=== PATIENT | female | born 1950 | race Caucasian/White ===

== ENCOUNTER 2017-11-15 14:13 | Emergency (ER) | payer MEDICARE, MEDICAID ==
[~2017-11-15] VITALS: Ht 160 cm; Wt 100.0 kg
[~2017-11-15 14:13] MED LIST: AMI25T PO; AMIT-189 PO; ARIP15TA3 PO; ATOR20TA66 PO; AZO1OS EACHEYE; BACL10TA2 PO; FLUO20CA39 PO; HYDR-3972 PO; LAMO100T2 PO; LIDO700A22 TP; LISI-230 PO; MECL12.584 PO; MELO-83 PO; OMEP20CA10 PO; ONDA4TAB12 PO; POLY17PO10 PO; TRAV5DRO5 OP
[2017-11-15 14:22] VITALS: BP 133/79
[2017-11-15 14:56] LABS: BASOPHILS % (AUTO) 0.2 % (0-1); EOSINOPHILS # (AUTO) 0.1 X10'3 (0-0.9); EOSINOPHILS % (AUTO) 0.9 % (0-6); HEMOGLOBIN 12.3 g/dl (12.0-16.0); LYMPHOCYTES # (AUTO) 1.6 X10'3 (1.1-4.8); LYMPHOCYTES % (AUTO) 12.6 % (21-51); MEAN CORPUSCULAR HEMOGLOBIN 28.7 PG (27.0-31.0); MEAN CORPUSCULAR HGB CONC 33.2 % (33.0-36.5); MEAN CORPUSCULAR VOLUME 86.3 FL (78-98); MEAN PLATELET VOLUME 7.5 FL (7.4-10.4); MONOCYTES # (AUTO) 0.5 X10'3 (0-0.9); MONOCYTES % (AUTO) 4.2 % (2-12); NEUTROPHILS # (AUTO) 10.6 X10'3 (1.8-7.7); NEUTROPHILS % (AUTO) 82.1 % (42-75); PLATELET COUNT 330 X10'3 (140-440); RED BLOOD COUNT 4.29 X10'6 (4.20-5.60); RED CELL DISTRIBUTION WIDTH 14.2 % (11.5-14.5); WHITE BLOOD COUNT 12.9 X10'3 (4.5-11.0)
[2017-11-15 15:00] LABS: INR 0.9 INR; PROTHROMBIN TIME 9.7 SECONDS (9.0-12.0)
[2017-11-15 15:04] LABS: CLARITY,URINE CLEAR (Clear); COLOR,URINE YELLOW (Yellow); GLUCOSE, URINE NEGATIVE (Neg); KETONES,URINE NEGATIVE (Neg); LEUKOCYTE ESTERASE ,URINE NEGATIVE (Neg); NITRITES, URINE NEGATIVE (Neg); OCCULT BLOOD,URINE NEGATIVE (Neg); PH,URINE 5.5 (4.8-8.0); PROTEIN,URINE NEGATIVE (Neg); URINE HCG NEGATIVE (NEG); UROBILINOGEN,URINE 0.2 E.U/dL (0.2-1.0)
[2017-11-15 15:05] LABS: ALANINE AMINOTRANSFERASE 33 U/L (12-78); ALBUMIN 3.3 G/DL (3.4-5.0); ALBUMIN/GLOBULIN RATIO 0.9 (1.1-1.5); ALKALINE PHOSPHATASE 160 IU/L (46-116); ANION GAP 10 (8-16); ASPARTATE AMINO TRANSFERASE 23 U/L (10-37); BILIRUBIN,TOTAL 0.3 MG/DL (0.1-1.0); BLOOD UREA NITROGEN 15 MG/DL (7-18); BUN/CREATININE RATIO 16.5 (6.6-38.0); CHLORIDE 103 MMOL/L (99-107); CREATININE 0.91 MG/DL (0.40-0.90); GLUCOSE 105 MG/DL (70-104); SODIUM 138 MMOL/L (135-145); TOTAL CARBON DIOXIDE 25.3 MMOL/L (24-32); TOTAL PROTEIN 7.1 G/DL (6.4-8.2); eGFR 62 ML/MIN
[2017-11-15 15:14] LABS: UA COLLECTION TYPE CLN CATCH MIDSTREAM
[2017-11-15] MEDS ORDERED: POLY17PO10 PO (16:27)
== END 2017-11-15 16:41 | disposition home or self-care (01) ==
LOC: ER 14:14
DX: K56.41 Fecal impaction (principal); E78.00 Pure hypercholesterolemia, unspecified; I10 Essential (primary) hypertension; K21.9 Gastro-esophageal reflux disease without esophagitis; E11.9 Type 2 diabetes mellitus without complications; G89.29 Other chronic pain; Z86.73 Personal history of transient ischemic attack (TIA), and cerebral infarction without residual deficits; Z98.890 Other specified postprocedural states; Z88.8 Allergy status to other drugs, medicaments and biological substances; Z79.899 Other long term (current) drug therapy
CPT/HCPCS: 36415; 74176; 80053; 81003; 81025; 83605; 85025; 85610; 99285

== ENCOUNTER → 2019-09-06 | Emergency (ER) | payer MEDICARE, MEDICAID ==
[~2019-09-06] VITALS: Ht 160 cm; Wt 106.5 kg
[~2019-09-06] MED LIST changes: +HYDROcodone/acetaminophen 5mg/325mg tablet PO ONE; +MECL-183 PO; -MECL12.584 PO; -OMEP20CA10 PO; +OMEP20CA15 PO; +TETanus/Pertussis (Acell)/Diphther VAC/PF (Tdap-Adult) 0.5ml syringe IMVAC ONE
[2019-09-06 15:34] VITALS: BP 127/77
== END | disposition home or self-care (01) ==
LOC: ER 15:32
DX: S50.311A Abrasion of right elbow, initial encounter (principal); S80.211A Abrasion, right knee, initial encounter; S60.512A Abrasion of left hand, initial encounter; E78.00 Pure hypercholesterolemia, unspecified; I10 Essential (primary) hypertension; K21.9 Gastro-esophageal reflux disease without esophagitis; E11.9 Type 2 diabetes mellitus without complications; G89.29 Other chronic pain; F41.9 Anxiety disorder, unspecified; F31.9 Bipolar disorder, unspecified; Z98.890 Other specified postprocedural states; Z88.8 Allergy status to other drugs, medicaments and biological substances; Z79.899 Other long term (current) drug therapy; W18.39XA Other fall on same level, initial encounter; Y93.01 Activity, walking, marching and hiking; Y92.89 Other specified places as the place of occurrence of the external cause; Y99.8 Other external cause status
CPT/HCPCS: 90471; 90715; 99284

== ENCOUNTER 2019-09-08 14:23 | Emergency (ER) | payer MEDICARE, MEDICAID ==
[~2019-09-08] VITALS: Ht 160 cm; Wt 105.9 kg
[~2019-09-08 14:23] MED LIST changes: -HYDROcodone/acetaminophen 5mg/325mg tablet PO ONE; -TETanus/Pertussis (Acell)/Diphther VAC/PF (Tdap-Adult) 0.5ml syringe IMVAC ONE
[2019-09-08 14:46] VITALS: BP 118/74
== END 2019-09-08 14:48 | disposition home or self-care (01) ==
LOC: ER 14:24
DX: S50.311D Abrasion of right elbow, subsequent encounter (principal); S80.211D Abrasion, right knee, subsequent encounter; S60.512D Abrasion of left hand, subsequent encounter; E78.00 Pure hypercholesterolemia, unspecified; I10 Essential (primary) hypertension; K21.9 Gastro-esophageal reflux disease without esophagitis; E11.9 Type 2 diabetes mellitus without complications; G89.29 Other chronic pain; F41.9 Anxiety disorder, unspecified; F31.9 Bipolar disorder, unspecified; Z98.890 Other specified postprocedural states; Z88.8 Allergy status to other drugs, medicaments and biological substances; Z91.048 Other nonmedicinal substance allergy status; Z79.899 Other long term (current) drug therapy; W18.39XD Other fall on same level, subsequent encounter
CPT/HCPCS: 99284

== ENCOUNTER 2020-01-01 15:14 | Emergency (ER) | payer BC, MEDICAID ==
[~2020-01-01] VITALS: Ht 160 cm; Wt 100.0 kg
[2020-01-01 15:37] LABS: BASOPHILS # (AUTO) 0.1 X10'3 (0-0.2); BASOPHILS % (AUTO) 0.9 % (0-1); EOSINOPHILS # (AUTO) 0.3 X10'3 (0-0.9); EOSINOPHILS % (AUTO) 2.3 % (0-6); HEMATOCRIT 35.5 % (35.0-45.0); HEMOGLOBIN 11.7 g/dl (12.0-16.0); LYMPHOCYTES # (AUTO) 3.1 X10'3 (1.1-4.8); LYMPHOCYTES % (AUTO) 26.2 % (21-51); MEAN CORPUSCULAR HEMOGLOBIN 28.8 PG (27.0-31.0); MEAN CORPUSCULAR VOLUME 87.1 FL (78-98); MONOCYTES # (AUTO) 0.7 X10'3 (0-0.9); NEUTROPHILS # (AUTO) 7.7 X10'3 (1.8-7.7); NEUTROPHILS % (AUTO) 64.6 % (42-75); PLATELET COUNT 312 X10'3 (140-440); RED BLOOD COUNT 4.07 X10'6 (4.20-5.60); RED CELL DISTRIBUTION WIDTH 14.1 % (11.5-14.5); WHITE BLOOD COUNT 11.9 X10'3 (4.5-11.0)
[2020-01-01] MEDS ORDERED: LIDOcaine Viscous 15ml cup MM ONE (15:50)
[2020-01-01] MEDS ORDERED: mag hydrox/Alum hydrox/simeth 30ml oral suspension PO ONE (15:50)
[2020-01-01 16:12] LABS: ALANINE AMINOTRANSFERASE 30 U/L (12-78); ALBUMIN 3.5 G/DL (3.4-5.0); ALBUMIN/GLOBULIN RATIO 0.9 (1.1-1.5); ALKALINE PHOSPHATASE 150 IU/L (46-116); ANION GAP 9 (8-16); ASPARTATE AMINO TRANSFERASE 22 U/L (10-37); BILIRUBIN,TOTAL 0.3 MG/DL (0.1-1.0); BLOOD UREA NITROGEN 19 MG/DL (7-18); BUN/CREATININE RATIO 22.6 (6.6-38.0); CALCIUM 9.2 MG/DL (8.5-10.1); CHLORIDE 106 MMOL/L (99-107); CREATININE 0.84 MG/DL (0.40-0.90); GLUCOSE 94 MG/DL (70-104); POTASSIUM 3.8 MMOL/L (3.5-5.1); SODIUM 141 MMOL/L (135-145); TOTAL CARBON DIOXIDE 26.1 MMOL/L (24-32); TOTAL PROTEIN 7.4 G/DL (6.4-8.2); eGFR 68 ML/MIN
[2020-01-01] MEDS ORDERED: ibuprofen tablet 400 MG TABLET PO ONE (17:05)
[2020-01-01 17:22] LABS: D-DIMER 0.83 MG/L FEU (0-0.50)
[2020-01-01 19:19] VITALS: BP 147/91
== END 2020-01-01 19:20 | disposition home or self-care (01) ==
LOC: ER 15:14
DX: R07.89 Other chest pain (principal); R42 Dizziness and giddiness; R11.0 Nausea; E78.00 Pure hypercholesterolemia, unspecified; I10 Essential (primary) hypertension; K21.9 Gastro-esophageal reflux disease without esophagitis; E11.9 Type 2 diabetes mellitus without complications; F41.9 Anxiety disorder, unspecified; F31.9 Bipolar disorder, unspecified; Z86.73 Personal history of transient ischemic attack (TIA), and cerebral infarction without residual deficits; Z98.890 Other specified postprocedural states; Z88.8 Allergy status to other drugs, medicaments and biological substances; Z79.899 Other long term (current) drug therapy
CPT/HCPCS: 36415; 71045; 80053; 84484; 85025; 85379; 93005; 99285

== ENCOUNTER 2020-09-05 18:38 | Observation (INO) | payer BC, MEDICAID ==
[~2020-09-05] VITALS: Ht 160 cm; Wt 104.5 kg
[~2020-09-05 18:38] MED LIST changes: -MECL-183 PO; +MECL-226 PO
[2020-09-05 19:10] LABS: BASOPHILS % (AUTO) 0.4 % (0-1); EOSINOPHILS # (AUTO) 0.3 X10'3 (0-0.9); EOSINOPHILS % (AUTO) 3.3 % (0-6); HEMATOCRIT 37.6 % (35.0-45.0); HEMOGLOBIN 12.3 g/dl (12.0-16.0); LYMPHOCYTES # (AUTO) 3.7 X10'3 (1.1-4.8); LYMPHOCYTES % (AUTO) 35.6 % (21-51); MEAN CORPUSCULAR HEMOGLOBIN 28.4 PG (27.0-31.0); MEAN CORPUSCULAR HGB CONC 32.6 g/dL (33.0-36.5); MEAN CORPUSCULAR VOLUME 87.2 FL (78-98); MEAN PLATELET VOLUME 6.9 FL (7.4-10.4); MONOCYTES # (AUTO) 0.9 X10'3 (0-0.9); MONOCYTES % (AUTO) 8.2 % (2-12); NEUTROPHILS # (AUTO) 5.4 X10'3 (1.8-7.7); NEUTROPHILS % (AUTO) 52.5 % (42-75); PLATELET COUNT 296 X10'3 (140-440); RED BLOOD COUNT 4.32 X10'6 (4.20-5.60); RED CELL DISTRIBUTION WIDTH 14.3 % (11.5-14.5); WHITE BLOOD COUNT 10.4 X10'3 (4.5-11.0)
[2020-09-05 19:33] LABS: ALANINE AMINOTRANSFERASE 29 U/L (12-78); ALBUMIN 3.3 G/DL (3.4-5.0); ALBUMIN/GLOBULIN RATIO 0.8 (1.1-1.5); ALKALINE PHOSPHATASE 149 IU/L (46-116); ANION GAP 10 (8-16); ASPARTATE AMINO TRANSFERASE 16 U/L (10-37); BILIRUBIN,TOTAL 0.2 MG/DL (0.1-1.0); BLOOD UREA NITROGEN 24 MG/DL (7-18); BUN/CREATININE RATIO 29.3 (6.6-38.0); CALCIUM 9.2 MG/DL (8.5-10.1); CHLORIDE 102 MMOL/L (99-107); CREATININE 0.82 MG/DL (0.40-0.90); GLUCOSE 139 MG/DL (70-104); POTASSIUM 4.1 MMOL/L (3.5-5.1); SODIUM 140 MMOL/L (135-145); TOTAL CARBON DIOXIDE 28.3 MMOL/L (24-32); TOTAL PROTEIN 7.5 G/DL (6.4-8.2); eGFR 70 ML/MIN
--- NOTE | 2020-09-05 20:10 | NUR ---
Helped pt to commode and back.
[2020-09-05] MEDS ORDERED: HYDROcodone/acetaminophen 5mg/325mg tablet PO PRN (20:50)
[2020-09-05] MEDS ORDERED: magnesium hydroxide 30ml (MOM) UD suspension PO PRN (20:50)
[2020-09-05] MEDS ORDERED: acetaminophen 325mg tablet PO PRN ×2 (20:50)
[2020-09-05] MEDS ORDERED: mag hydrox/Alum hydrox/simeth 30ml oral suspension PO PRN (20:50)
[2020-09-05] MEDS ORDERED: nitroGLYCERIN 0.4mg SUBLingual tab SL PRN (20:50)
[2020-09-05] MEDS ORDERED: morphine 2 MG/ML inj. syringe IV PRN ×2 (20:50)
[2020-09-05] MEDS ORDERED: ondansetron/PF 4mg/2ml inj IV PRN (20:50)
[2020-09-05 21:25] LABS: D-DIMER 1.29 MG/L FEU (0-0.50)
[2020-09-05] MEDS ORDERED: BACL-11 PO (22:29)
[2020-09-05] MEDS ORDERED: POLY510P31 PO (22:29)
[2020-09-05] MEDS ORDERED: MULT-1085 PO (22:29)
[2020-09-05] MEDS ORDERED: LATA2.5D22 EACHEYE (22:29)
[2020-09-05] MEDS ORDERED: ARIP30TA22 PO (22:29)
[2020-09-05] MEDS ORDERED: CHOL100025 PO (22:29)
[2020-09-05] MEDS ORDERED: ATOR40TA72 PO (22:29)
[2020-09-05] MEDS ORDERED: OXYC-658 PO (22:29)
[2020-09-05] MEDS ORDERED: DOCU-267 PO (22:29)
[2020-09-05] MEDS ORDERED: LAMO200T10 PO (22:29)
[2020-09-05] MEDS ORDERED: CALC-97 PO (22:29)
[2020-09-05] MEDS ORDERED: FLUO40CA PO (22:29)
[2020-09-05] MEDS ORDERED: GABA-530 PO (22:29)
[2020-09-05] MEDS ORDERED: TRAZ-256 PO (22:29)
[2020-09-05] MEDS ORDERED: ACET-75 PO (22:29)
[2020-09-05] MEDS ORDERED: MECL-159 PO (22:30)
[2020-09-05] MEDS ORDERED: latanoprost 0.005% 2.5ml ophthalmic drops EACHEYE SCH (22:43)
[2020-09-05 22:50] LABS: HEMOGLOBIN A1C 6.1 % (4.5-6.2)
[2020-09-05] MEDS ORDERED: iohexol 350MG/ML 100ml bottle IV ONE (22:57)
[2020-09-05] MEDS ORDERED: meclizine 12.5mg tablet PO PRN (23:00)
[2020-09-05] MEDS: oxyCODONE IR 5mg (immed. release) tablet PO PRN (23:14)
[2020-09-06 01:30] VITALS: BP 156/79
[2020-09-06 01:43] LABS: BASOPHILS % (AUTO) 0.6 % (0-1); EOSINOPHILS # (AUTO) 0.3 X10'3 (0-0.9); EOSINOPHILS % (AUTO) 4.1 % (0-6); HEMATOCRIT 36.4 % (35.0-45.0); LYMPHOCYTES # (AUTO) 2.7 X10'3 (1.1-4.8); LYMPHOCYTES % (AUTO) 34.8 % (21-51); MEAN CORPUSCULAR HEMOGLOBIN 28.7 PG (27.0-31.0); MEAN PLATELET VOLUME 6.7 FL (7.4-10.4); MONOCYTES # (AUTO) 0.8 X10'3 (0-0.9); MONOCYTES % (AUTO) 9.7 % (2-12); NEUTROPHILS # (AUTO) 3.9 X10'3 (1.8-7.7); NEUTROPHILS % (AUTO) 50.8 % (42-75); PLATELET COUNT 277 X10'3 (140-440); RED BLOOD COUNT 4.19 X10'6 (4.20-5.60); WHITE BLOOD COUNT 7.8 X10'3 (4.5-11.0)
[2020-09-06 02:04] LABS: ALBUMIN 3.2 G/DL (3.4-5.0); ANION GAP 11 (8-16); BLOOD UREA NITROGEN 22 MG/DL (7-18); BUN/CREATININE RATIO 27.5 (6.6-38.0); CALCIUM 9.1 MG/DL (8.5-10.1); CHLORIDE 105 MMOL/L (99-107); CHOL/HDL RATIO 3.3 (0.00-4.99); CHOLESTEROL 143 MG/DL (0-200); GLUCOSE 115 MG/DL (70-104); HDL CHOLESTEROL 44 MG/DL (35-60); LDL CHOLESTEROL 82 MG/DL (50-100); POTASSIUM 4.1 MMOL/L (3.5-5.1); SODIUM 144 MMOL/L (135-145); TOTAL CARBON DIOXIDE 28.2 MMOL/L (24-32); TRIGLYCERIDES 105 MG/DL (20-135); eGFR 72 ML/MIN
[2020-09-06] MEDS ORDERED: calcium carbonate/vitamin D3 tablet PO SCH (07:30)
[2020-09-06] MEDS ORDERED: polyethylene glycol 3350 17gm powd pack PO SCH (08:00)
[2020-09-06] MEDS ORDERED: baclofen 10mg tablet PO SCH (08:00)
[2020-09-06] MEDS ORDERED: FLUoxetine 20mg capsule PO SCH (08:00)
[2020-09-06] MEDS ORDERED: gabapentin 300mg capsule PO SCH (08:00)
[2020-09-06] MEDS ORDERED: multivitamins, therapeutics tablet PO SCH (08:00)
[2020-09-06] MEDS ORDERED: cholecalciferol (vitamin D3) 1,000 unit (25mcg) tablet PO SCH (08:00)
[2020-09-06] MEDS ORDERED: aspirin 81mg tablet.DR PO SCH (08:00)
[2020-09-06] MEDS ORDERED: docusate sod 100mg capsule PO SCH (08:00)
[2020-09-06 09:14] VITALS: BP 135/75
[2020-09-06] MEDS: oxyCODONE IR 5mg (immed. release) tablet PO PRN (10:00)
[2020-09-06 11:57] VITALS: BP 127/50
[2020-09-06] MEDS ORDERED: FLU VACC QS2020-21(6MOS UP)/PF 60 MCG/0.5 ML SYRINGE IMVAC ONE (12:50)
--- NOTE | 2020-09-06 13:44 | NUR ---
DM Consult: Pt A1C less than 7 and not appropriate for DM ed at this time. Addendum: 09/06/20 at [address] Amended: Links added.
[2020-09-06] MEDS ORDERED: traZODone 50mg tablet PO SCH (21:00)
[2020-09-06] MEDS ORDERED: ARIPIPRAZOLE 15 MG TABLET PO SCH (21:00)
[2020-09-06] MEDS ORDERED: atorvastatin 20mg tablet PO SCH (21:00)
[2020-09-06] MEDS ORDERED: lamoTRIgine 100mg tablet PO SCH (21:00)
[2020-09-08] MEDS ORDERED: pantoprazole 40mg Tablet.DR PO SCH (07:30)
== END 2020-09-06 15:00 | disposition home or self-care (01) ==
LOC: ER 18:39 → ED HOLD 20:48 → ORTHO 4S 09-06 01:20
PROVIDERS: ADMIT Internal Medicine; ATTEND Internal Medicine
DX: R07.89 Other chest pain (principal); F31.9 Bipolar disorder, unspecified; E78.5 Hyperlipidemia, unspecified; G47.00 Insomnia, unspecified; E11.9 Type 2 diabetes mellitus without complications; G89.29 Other chronic pain; M54.2 Cervicalgia; E78.00 Pure hypercholesterolemia, unspecified; K21.9 Gastro-esophageal reflux disease without esophagitis; I10 Essential (primary) hypertension; Z23 Encounter for immunization; Z86.73 Personal history of transient ischemic attack (TIA), and cerebral infarction without residual deficits; Z98.1 Arthrodesis status; Z79.899 Other long term (current) drug therapy; Z88.8 Allergy status to other drugs, medicaments and biological substances; Z91.048 Other nonmedicinal substance allergy status
CPT/HCPCS: 36415; 71045; 71275; 80048; 80053; 80061; 83036; 83880; 84484; 85025; 85379; 87081; 93005; 99285; G0008; G0378; Q2039; Q9967

== ENCOUNTER 2021-01-18 15:28 | Emergency (ER) | payer BC, MEDICAID ==
[~2021-01-18] VITALS: Ht 160 cm; Wt 112.3 kg
[~2021-01-18 15:28] MED LIST changes: +ACET-75 PO; -AMI25T PO; -AMIT-189 PO; -ARIP15TA3 PO; +ARIP30TA22 PO; -ATOR20TA66 PO; +ATOR40TA72 PO; -AZO1OS EACHEYE; +BACL-11 PO; -BACL10TA2 PO; +CALC-97 PO; +CHOL100025 PO; +DOCU-262 PO; -FLUO20CA39 PO; +FLUO40CA PO; +GABA-530 PO; -HYDR-3972 PO; -LAMO100T2 PO; +LAMO200T10 PO; +LATA2.5D22 EACHEYE; -LIDO700A22 TP; -LISI-230 PO; +MECL-159 PO; -MECL-226 PO; -MELO-83 PO; +MULT-1085 PO; -OMEP20CA15 PO; -ONDA4TAB12 PO; +OXYC-658 PO; -POLY17PO10 PO; +POLY510P31 PO; -TRAV5DRO5 OP; +TRAZ-256 PO
[2021-01-18] MEDS ORDERED: aspirin 325mg tablet PO ONE (15:40)
[2021-01-18 16:00] LABS: BASOPHILS % (AUTO) 0.5 % (0-1); EOSINOPHILS # (AUTO) 0.4 X10'3 (0-0.9); EOSINOPHILS % (AUTO) 4.3 % (0-6); HEMATOCRIT 34.9 % (35.0-45.0); HEMOGLOBIN 11.5 g/dl (12.0-16.0); LYMPHOCYTES # (AUTO) 2.9 X10'3 (1.1-4.8); LYMPHOCYTES % (AUTO) 34.1 % (21-51); MEAN CORPUSCULAR HEMOGLOBIN 30.1 PG (27.0-31.0); MEAN CORPUSCULAR HGB CONC 33.1 g/dL (33.0-36.5); MEAN CORPUSCULAR VOLUME 90.9 FL (78-98); MEAN PLATELET VOLUME 6.8 FL (7.4-10.4); MONOCYTES # (AUTO) 0.5 X10'3 (0-0.9); MONOCYTES % (AUTO) 6.3 % (2-12); NEUTROPHILS # (AUTO) 4.7 X10'3 (1.8-7.7); NEUTROPHILS % (AUTO) 54.8 % (42-75); PLATELET COUNT 265 X10'3 (140-440); RED BLOOD COUNT 3.84 X10'6 (4.20-5.60); WHITE BLOOD COUNT 8.6 X10'3 (4.5-11.0)
[2021-01-18 16:16] LABS: ALANINE AMINOTRANSFERASE 25 U/L (12-78); ALBUMIN 3.7 G/DL (3.4-5.0); ALBUMIN/GLOBULIN RATIO 1.1 (1.1-1.5); ALKALINE PHOSPHATASE 130 IU/L (46-116); ANION GAP 11 (8-16); ASPARTATE AMINO TRANSFERASE 20 U/L (10-37); BILIRUBIN,TOTAL 0.2 MG/DL (0.1-1.0); BLOOD UREA NITROGEN 24 MG/DL (7-18); BUN/CREATININE RATIO 21.2 (6.6-38.0); CALCIUM 8.9 MG/DL (8.5-10.1); CHLORIDE 109 MMOL/L (99-107); CREATININE 1.13 MG/DL (0.40-0.90); GLUCOSE 162 MG/DL (70-104); POTASSIUM 3.9 MMOL/L (3.5-5.1); SODIUM 146 MMOL/L (135-145); TOTAL CARBON DIOXIDE 25.7 MMOL/L (24-32); TOTAL PROTEIN 7.2 G/DL (6.4-8.2); eGFR 48 ML/MIN
[2021-01-18] MEDS ORDERED: sucralfate 1gm/10ml UD suspension PO ONE (19:00)
[2021-01-18] MEDS ORDERED: sucralfate 1 gm tablet PO ONE (19:15)
[2021-01-18 19:24] VITALS: BP 150/70
== END 2021-01-18 19:59 | disposition home or self-care (01) ==
LOC: ER 15:29
DX: R10.13 Epigastric pain (principal); R07.89 Other chest pain; I10 Essential (primary) hypertension; E78.00 Pure hypercholesterolemia, unspecified; G89.29 Other chronic pain; Z98.890 Other specified postprocedural states; Z88.8 Allergy status to other drugs, medicaments and biological substances; Z91.048 Other nonmedicinal substance allergy status
CPT/HCPCS: 36415; 71045; 80053; 83880; 84484; 85025; 93005; 99285

== ENCOUNTER 2021-07-24 20:49 | Inpatient (IN) | payer BC, MEDICAID ==
[~2021-07-24] VITALS: Ht 160 cm; Wt 118.0 kg
[2021-07-24 21:45] LABS: BASOPHILS # (AUTO) 0.1 X10'3 (0-0.2); BASOPHILS % (AUTO) 0.7 % (0-1); EOSINOPHILS # (AUTO) 0.6 X10'3 (0-0.9); EOSINOPHILS % (AUTO) 6.9 % (0-6); HEMOGLOBIN 11.2 g/dl (12.0-16.0); LYMPHOCYTES # (AUTO) 3.1 X10'3 (1.1-4.8); LYMPHOCYTES % (AUTO) 36.8 % (21-51); MEAN CORPUSCULAR HGB CONC 32.9 g/dL (33.0-36.5); MEAN CORPUSCULAR VOLUME 88.2 FL (78-98); MEAN PLATELET VOLUME 6.5 FL (7.4-10.4); MONOCYTES # (AUTO) 0.8 X10'3 (0-0.9); MONOCYTES % (AUTO) 9.3 % (2-12); NEUTROPHILS % (AUTO) 46.3 % (42-75); PLATELET COUNT 285 X10'3 (140-440); RED BLOOD COUNT 3.86 X10'6 (4.20-5.60); RED CELL DISTRIBUTION WIDTH 14.6 % (11.5-14.5); WHITE BLOOD COUNT 8.6 X10'3 (4.5-11.0)
[2021-07-24 22:02] LABS: ALANINE AMINOTRANSFERASE 29 U/L (12-78); ALBUMIN 3.5 G/DL (3.4-5.0); ALBUMIN/GLOBULIN RATIO 0.9 (1.1-1.5); ALKALINE PHOSPHATASE 118 IU/L (46-116); ASPARTATE AMINO TRANSFERASE 22 U/L (10-37); BILIRUBIN,TOTAL 0.2 MG/DL (0.1-1.0); BLOOD UREA NITROGEN 28 MG/DL (7-18); BUN/CREATININE RATIO 29.8 (6.6-38.0); CALCIUM 9.3 MG/DL (8.5-10.1); CHLORIDE 104 MMOL/L (99-107); CREATININE 0.94 MG/DL (0.40-0.90); GLUCOSE 116 MG/DL (70-104); POTASSIUM 4.3 MMOL/L (3.5-5.1); SODIUM 138 MMOL/L (135-145); TOTAL PROTEIN 7.3 G/DL (6.4-8.2); eGFR 59 ML/MIN
[2021-07-24 22:10] LABS: MAGNESIUM 2.6 MG/DL (1.5-2.4)
[2021-07-24 22:58] LABS: ANION GAP 7 (8-16); TOTAL CARBON DIOXIDE 26.9 MMOL/L (24-32)
[2021-07-24] MEDS ORDERED: nitroGLYCERIN 0.4mg/hour patch TD ONE (23:35)
[2021-07-25] VITALS (13 sets, daily range): BP systolic 114–145; BP diastolic 52–68
[2021-07-25] MEDS ORDERED: HYDROcodone/acetaminophen 5mg/325mg tablet PO PRN (01:25)
[2021-07-25] MEDS ORDERED: morphine 2 MG/ML inj. syringe IV PRN ×2 (01:25)
[2021-07-25] MEDS ORDERED: dextrose 50%-water 50ml dispensing syringe IV PRN ×2 (01:25)
[2021-07-25] MEDS ORDERED: insulin Lispro (HumaLOG) vial - multi-dose SQ SCH (01:25)
[2021-07-25] MEDS ORDERED: potassium CL 10mEq/100ml bag 100 ML IV PRN (01:25)
[2021-07-25] MEDS ORDERED: potassium Cl 20 mEq SR tablet PO PRN ×2 (01:25)
[2021-07-25] MEDS ORDERED: glucagon, human recombinant 1mg kit SUBCUT PRN (01:25)
[2021-07-25] MEDS ORDERED: magnesium hydroxide 30ml (MOM) UD suspension PO PRN (01:25)
[2021-07-25] MEDS ORDERED: DEXTROSE 15 GM of carb/4 tabs (each vial/BOTTLE has 4 tablets) PO PRN ×2 (01:25)
[2021-07-25] MEDS ORDERED: ondansetron/PF 4mg/2ml inj IV PRN (01:25)
[2021-07-25] MEDS ORDERED: magnesium 4gm in 100ml NS 100 ML IV PRN (01:25)
[2021-07-25] MEDS ORDERED: MESSAGE TO PHARMACY PO ONE (01:25)
[2021-07-25] MEDS ORDERED: magnesium Cl slow-release 64mg tablet PO PRN (01:25)
[2021-07-25] MEDS ORDERED: magnesium 2GM in 50ml NS 50 ML IV PRN (01:25)
[2021-07-25] MEDS ORDERED: mag hydrox/Alum hydrox/simeth 30ml oral suspension PO PRN (01:25)
[2021-07-25] MEDS ORDERED: acetaminophen 325mg tablet PO PRN (01:25)
[2021-07-25 03:40] LABS: MAGNESIUM 2.6 MG/DL (1.5-2.4); POTASSIUM 4.1 MMOL/L (3.5-5.1)
[2021-07-25 03:56] LABS: HEMOGLOBIN A1C 6.6 % (4.5-6.2)
--- NOTE | 2021-07-25 06:30 | NUR ---
Patient in room PCU 3026. I have received report from Linda AVILA and had the opportunity to ask questions and assume patient care. Patient resting in bed in no acute distress.
--- NOTE | 2021-07-25 06:34 | NUR ---
Patient in room PCU 3026. I have received report from Linda AVILA and had the opportunity to ask questions and assume patient care.
[2021-07-25 07:26] LABS: BASOPHILS # (AUTO) 0.1 X10'3 (0-0.2); BASOPHILS % (AUTO) 0.9 % (0-1); EOSINOPHILS # (AUTO) 0.6 X10'3 (0-0.9); EOSINOPHILS % (AUTO) 7.8 % (0-6); HEMATOCRIT 31.3 % (35.0-45.0); HEMOGLOBIN 10.3 g/dl (12.0-16.0); LYMPHOCYTES # (AUTO) 2.2 X10'3 (1.1-4.8); MEAN CORPUSCULAR HEMOGLOBIN 29.2 PG (27.0-31.0); MEAN CORPUSCULAR HGB CONC 32.9 g/dL (33.0-36.5); MEAN CORPUSCULAR VOLUME 88.8 FL (78-98); MEAN PLATELET VOLUME 6.9 FL (7.4-10.4); MONOCYTES # (AUTO) 0.7 X10'3 (0-0.9); MONOCYTES % (AUTO) 9.6 % (2-12); NEUTROPHILS # (AUTO) 3.8 X10'3 (1.8-7.7); NEUTROPHILS % (AUTO) 51.7 % (42-75); PLATELET COUNT 282 X10'3 (140-440); RED BLOOD COUNT 3.52 X10'6 (4.20-5.60); RED CELL DISTRIBUTION WIDTH 14.9 % (11.5-14.5); WHITE BLOOD COUNT 7.4 X10'3 (4.5-11.0)
[2021-07-25 07:44] LABS: ALANINE AMINOTRANSFERASE 29 U/L (12-78); ALBUMIN 3.2 G/DL (3.4-5.0); ALBUMIN/GLOBULIN RATIO 0.9 (1.1-1.5); ALKALINE PHOSPHATASE 107 IU/L (46-116); ANION GAP 8 (8-16); ASPARTATE AMINO TRANSFERASE 25 U/L (10-37); BILIRUBIN,TOTAL 0.3 MG/DL (0.1-1.0); BLOOD UREA NITROGEN 23 MG/DL (7-18); BUN/CREATININE RATIO 25.3 (6.6-38.0); CALCIUM 8.9 MG/DL (8.5-10.1); CHLORIDE 107 MMOL/L (99-107); CREATININE 0.91 MG/DL (0.40-0.90); GLUCOSE 111 MG/DL (70-104); POTASSIUM 4.3 MMOL/L (3.5-5.1); SODIUM 142 MMOL/L (135-145); TOTAL PROTEIN 6.6 G/DL (6.4-8.2); eGFR 61 ML/MIN
[2021-07-25] MEDS: docusate sod 100mg capsule PO SCH ×2 (07:58→20:00)
[2021-07-25] MEDS: K and/or MAG REPLACEMENT MC SCH ×2 (08:00→20:00)
[2021-07-25] MEDS: enoxaparin 40mg/0.4ml syringe SUBCUT SCH (08:03)
[2021-07-25] MEDS ORDERED: nitroGLYCERIN 0.4mg SUBLingual tab SL PRN (09:20)
[2021-07-25] MEDS ORDERED: metoprolol tartrate 1mg/ml inj IV PRN (09:20)
[2021-07-25] MEDS ORDERED: regadenoson 0.4mg/5ml syringe IV PRN (09:20)
[2021-07-25] MEDS ORDERED: aminophylline 500mg/20ml vial IV PRN (09:20)
[2021-07-25] MEDS ORDERED: PERFLUTREN PROTEIN-A MICROSPHR (Optison) 0.22 MG/ML 3ML VIAL IV ONE (09:25)
[2021-07-25] MEDS ORDERED: BACL10TA2 PO (13:05)
[2021-07-25] MEDS ORDERED: AMLO10TA13 PO (13:05)
[2021-07-25] MEDS ORDERED: IBUP-1986 PO (13:05)
[2021-07-25] MEDS ORDERED: TRAZ-251 PO (13:05)
[2021-07-25] MEDS ORDERED: LISI1TAB53 PO (13:05)
[2021-07-25] MEDS ORDERED: MULT-1085 PO (13:07)
[2021-07-25] MEDS ORDERED: CHOL100046 PO (13:07)
[2021-07-25] MEDS ORDERED: VITA-268 PO (13:07)
--- NOTE | 2021-07-25 15:54 | NUR ---
Page Sent promotional table spacer PAGER ID: [phone] MESSAGE: [id number] Deter. Stress test results available. I am going to feed patient. Nery [id number]
[2021-07-25] MEDS ORDERED: iohexol 350MG/ML 100ml bottle IV ONE (16:19)
--- NOTE | 2021-07-25 17:54 | NUR ---
[place] documentation: I have reviewed and agree with all interventions, assessments performed and documented by Trish AVILA. [employer] Medication Administration: For this medication-pass time frame, all medication were reviewed, dispensed, administered and documented per hospital policy by Trish AVILA.
--- NOTE | 2021-07-25 18:18 | NUR ---
Problems reprioritized. Patient report given, questions answered & plan of care reviewed with Malathi AVILA. Patient resting in bed in no acute distress.
--- NOTE | 2021-07-25 18:21 | NUR ---
Problems reprioritized. Patient report given to Malathi AVILA, questions answered & plan of care reviewed with .
--- NOTE | 2021-07-25 18:25 | NUR ---
Nitro patch D/C'd and removed at 1500
[2021-07-25] MEDS: baclofen 10mg tablet PO SCH (20:22)
[2021-07-25] MEDS: gabapentin 300mg capsule PO SCH (20:22)
[2021-07-25] MEDS ORDERED: atorvastatin 20mg tablet PO SCH (21:00)
[2021-07-25] MEDS ORDERED: lamoTRIgine 100mg tablet PO SCH (21:00)
[2021-07-25] MEDS ORDERED: traZODone 50mg tablet PO SCH ×2 (21:00)
[2021-07-25] MEDS ORDERED: insulin glargine (Lantus) pen - multi-dose SQ SCH (21:00)
[2021-07-26 02:00] VITALS: BP 130/62
[2021-07-26 06:00] VITALS: BP 121/60
[2021-07-26 06:15] LABS: BASOPHILS # (AUTO) 0.1 X10'3 (0-0.2); BASOPHILS % (AUTO) 0.8 % (0-1); EOSINOPHILS # (AUTO) 0.4 X10'3 (0-0.9); EOSINOPHILS % (AUTO) 5.3 % (0-6); HEMATOCRIT 30.8 % (35.0-45.0); HEMOGLOBIN 10.3 g/dl (12.0-16.0); LYMPHOCYTES # (AUTO) 2.4 X10'3 (1.1-4.8); LYMPHOCYTES % (AUTO) 32.9 % (21-51); MEAN CORPUSCULAR HEMOGLOBIN 29.5 PG (27.0-31.0); MEAN CORPUSCULAR HGB CONC 33.5 g/dL (33.0-36.5); MEAN CORPUSCULAR VOLUME 88.1 FL (78-98); MEAN PLATELET VOLUME 6.7 FL (7.4-10.4); MONOCYTES # (AUTO) 0.6 X10'3 (0-0.9); MONOCYTES % (AUTO) 8.7 % (2-12); NEUTROPHILS # (AUTO) 3.9 X10'3 (1.8-7.7); NEUTROPHILS % (AUTO) 52.3 % (42-75); PLATELET COUNT 291 X10'3 (140-440); RED CELL DISTRIBUTION WIDTH 14.8 % (11.5-14.5); WHITE BLOOD COUNT 7.4 X10'3 (4.5-11.0)
--- NOTE | 2021-07-26 06:22 | NUR ---
Problems reprioritized. Patient report given, questions answered & plan of care reviewed with AUSTIN Babin, made aware that pt c/o of rt leg pain with movement starting 07/18/2021, no swelling or redness noted.
[2021-07-26 06:48] LABS: ALANINE AMINOTRANSFERASE 27 U/L (12-78); ALBUMIN 3.1 G/DL (3.4-5.0); ALBUMIN/GLOBULIN RATIO 0.9 (1.1-1.5); ALKALINE PHOSPHATASE 109 IU/L (46-116); ANION GAP 9 (8-16); ASPARTATE AMINO TRANSFERASE 20 U/L (10-37); BILIRUBIN,TOTAL 0.4 MG/DL (0.1-1.0); BLOOD UREA NITROGEN 19 MG/DL (7-18); BUN/CREATININE RATIO 22.4 (6.6-38.0); CALCIUM 8.6 MG/DL (8.5-10.1); CHLORIDE 107 MMOL/L (99-107); CHOL/HDL RATIO 3.1 (0.00-4.99); CHOLESTEROL 148 MG/DL (0-200); CREATININE 0.85 MG/DL (0.40-0.90); GLUCOSE 104 MG/DL (70-104); HDL CHOLESTEROL 47 MG/DL (35-60); LDL CHOLESTEROL 81 MG/DL (50-100); POTASSIUM 4.1 MMOL/L (3.5-5.1); SODIUM 142 MMOL/L (135-145); TOTAL CARBON DIOXIDE 26.4 MMOL/L (24-32); TOTAL PROTEIN 6.5 G/DL (6.4-8.2); TRIGLYCERIDES 123 MG/DL (20-135); eGFR 67 ML/MIN
[2021-07-26] MEDS: enoxaparin 40mg/0.4ml syringe SUBCUT SCH (07:30)
[2021-07-26] MEDS: gabapentin 300mg capsule PO SCH (07:31)
[2021-07-26 07:32] VITALS: BP_SYST 121
[2021-07-26] MEDS: baclofen 10mg tablet PO SCH (07:32)
[2021-07-26] MEDS: K and/or MAG REPLACEMENT MC SCH (07:35)
[2021-07-26] MEDS: docusate sod 100mg capsule PO SCH (07:35)
[2021-07-26] MEDS ORDERED: HYDROchlorothiazide 25mg tablet PO SCH (08:00)
[2021-07-26] MEDS ORDERED: FLUoxetine 20mg capsule PO SCH (08:00)
[2021-07-26] MEDS ORDERED: multivitamins, therapeutics tablet PO SCH (08:00)
[2021-07-26] MEDS ORDERED: non-formulary drug (Vitamin B Complex (B Complex) 1 TAB) PO SCH (08:00)
[2021-07-26] MEDS ORDERED: ARIPIPRAZOLE 15 MG TABLET PO SCH (08:00)
[2021-07-26] MEDS ORDERED: lisinopril 20mg tablet PO SCH (08:00)
[2021-07-26] MEDS ORDERED: PANT-47 PO (09:56)
--- NOTE | 2021-07-26 11:00 | NUR ---
medically stable for discharge as per MD. PIV discontinued with iv cannula tip complete and intact, pt tolerated procedure well. home/ discharge instructions was given and explained to patient prior to discharge. wheel patient down to lobby via wheelchair with student nurse for discharge.
--- NOTE | 2021-07-26 11:10 | NUR ---
Student documentation: I have reviewed and agree with all interventions, assessments performed and documented by Elizabeth, associate of science in nursing.
--- NOTE | 2021-07-26 11:10 | NUR ---
Student Medication Administration: For this medication-pass time frame, all medication were reviewed, dispensed, administered and documented per hospital policy by Elizabeth [employer].
== END 2021-07-26 10:47 | disposition home or self-care (01) | DRG 392 ==
LOC: ER 20:49 → ED HOLD 07-25 01:29 → PCU 3S 07-25 03:30
PROVIDERS: ADMIT Internal Medicine; ATTEND Family Medicine
PROC: 4A02XM4 Measurement of Cardiac Total Activity, External Approach (ICD-10-PCS; principal; 2021-07-25)
PROC: 3E033HZ Introduction of Radioactive Substance into Peripheral Vein, Percutaneous Approach (ICD-10-PCS; 2021-07-25)
PROC: B32T1ZZ Computerized Tomography (CT Scan) of Left Pulmonary Artery using Low Osmolar Contrast (ICD-10-PCS; 2021-07-25)
PROC: B3201ZZ Computerized Tomography (CT Scan) of Thoracic Aorta using Low Osmolar Contrast (ICD-10-PCS; 2021-07-25)
PROC: B32S1ZZ Computerized Tomography (CT Scan) of Right Pulmonary Artery using Low Osmolar Contrast (ICD-10-PCS; 2021-07-25)
DX: K21.9 Gastro-esophageal reflux disease without esophagitis (principal); I20.0 Unstable angina; Z68.42 Body mass index [BMI] 45.0-49.9, adult; E03.9 Hypothyroidism, unspecified; E11.9 Type 2 diabetes mellitus without complications; E66.01 Morbid (severe) obesity due to excess calories; F41.9 Anxiety disorder, unspecified; M54.9 Dorsalgia, unspecified; E78.00 Pure hypercholesterolemia, unspecified; E78.5 Hyperlipidemia, unspecified; F31.9 Bipolar disorder, unspecified; G89.29 Other chronic pain; I10 Essential (primary) hypertension; Z86.73 Personal history of transient ischemic attack (TIA), and cerebral infarction without residual deficits; Z88.8 Allergy status to other drugs, medicaments and biological substances; Z87.440 Personal history of urinary (tract) infections; Z82.49 Family history of ischemic heart disease and other diseases of the circulatory system; Z79.899 Other long term (current) drug therapy
CPT/HCPCS: 36415; 71045; 71275; 78452; 80053; 80061; 82948; 83036; 83735; 83880; 84132; 84484; 85025; 87081; 93005; 93017; 93306; 99285; A9500; G0378; J1650; J1815; J2785; Q9967

== ENCOUNTER 2022-08-01 19:31 | Emergency (ER) | payer BC, MEDICAID ==
[~2022-08-01] VITALS: Ht 160 cm; Wt 113.6 kg
[~2022-08-01 19:31] MED LIST changes: -ACET-75 PO; +AMLO10TA13 PO; -BACL-11 PO; +BACL10TA2 PO; -CALC-97 PO; -CHOL100025 PO; +CHOL100046 PO; -DOCU-262 PO; -LATA2.5D22 EACHEYE; +LISI1TAB53 PO; -MECL-159 PO; -OXYC-658 PO; +PANT-47 PO; -POLY510P31 PO; +TRAZ-251 PO; -TRAZ-256 PO; +VITA-268 PO
[2022-08-01 20:31] LABS: BASOPHILS % (AUTO) 0.6 % (0-1); EOSINOPHILS # (AUTO) 0.2 X10'3 (0-0.9); EOSINOPHILS % (AUTO) 2.4 % (0-6); HEMOGLOBIN 11.4 g/dl (12.0-16.0); LYMPHOCYTES % (AUTO) 38.6 % (21-51); MEAN CORPUSCULAR HEMOGLOBIN 27.6 PG (27.0-31.0); MEAN CORPUSCULAR HGB CONC 32.6 g/dL (33.0-36.5); MEAN CORPUSCULAR VOLUME 84.5 FL (78-98); MEAN PLATELET VOLUME 6.3 FL (7.4-10.4); MONOCYTES # (AUTO) 0.7 X10'3 (0-0.9); MONOCYTES % (AUTO) 9.2 % (2-12); NEUTROPHILS # (AUTO) 3.8 X10'3 (1.8-7.7); NEUTROPHILS % (AUTO) 49.2 % (42-75); PLATELET COUNT 279 X10'3 (140-440); RED BLOOD COUNT 4.13 X10'6 (4.20-5.60); RED CELL DISTRIBUTION WIDTH 16.8 % (11.5-14.5); WHITE BLOOD COUNT 7.8 X10'3 (4.5-11.0)
[2022-08-01 20:47] LABS: ALANINE AMINOTRANSFERASE 22 U/L (12-78); ALBUMIN 4.1 G/DL (3.4-5.0); ALBUMIN/GLOBULIN RATIO 1.1 (1.1-1.5); ALKALINE PHOSPHATASE 174 IU/L (46-116); ANION GAP 9 (8-16); ASPARTATE AMINO TRANSFERASE 20 U/L (10-37); BILIRUBIN,TOTAL 0.3 MG/DL (0.1-1.0); BLOOD UREA NITROGEN 31 MG/DL (7-18); CALCIUM 9.2 MG/DL (8.5-10.1); CHLORIDE 105 MMOL/L (99-107); CREATININE 1.07 MG/DL (0.40-0.90); GLUCOSE 116 MG/DL (70-104); POTASSIUM 4.1 MMOL/L (3.5-5.1); SODIUM 142 MMOL/L (135-145); TOTAL PROTEIN 7.7 G/DL (6.4-8.2); eGFR 51 ML/MIN
[2022-08-01 20:59] LABS: ETHANOL < 0.010 GM/DL (0.0-0.010)
[2022-08-01 22:02] LABS: CLARITY,URINE SLIGHTLY CLOUDY (Clear); COLOR,URINE YELLOW (Yellow); GLUCOSE, URINE NEGATIVE (Neg); KETONES,URINE NEGATIVE (Neg); LEUKOCYTE ESTERASE ,URINE MODERATE (Neg); NITRITES, URINE NEGATIVE (Neg); OCCULT BLOOD,URINE NEGATIVE (Neg); PROTEIN,URINE NEGATIVE (Neg); UROBILINOGEN,URINE 0.2 E.U/dL (0.2-1.0)
[2022-08-01 22:05] LABS: UA COLLECTION TYPE CLN CATCH MIDSTREAM
[2022-08-01 22:09] LABS: BACTERIA,URINE FEW /HPF (Neg); MUCUS STRANDS FEW /LPF (Neg); RBC,URINE 0-2 /HPF (0-2); SQUAMOUS EPITHELIAL CELL,UR FEW /LPF (FEW); WBC CLUMPS,URINE MODERATE /HPF (NEGATIVE); WBC,URINE 30-50 /HPF (0-4)
[2022-08-01 22:15] LABS: URINE AMPHETAMINE SCREEN NEGATIVE (Neg); URINE BARBITUATE SCREEN NEGATIVE (Neg); URINE BENZODIAZEPINES SCREEN NEGATIVE (Neg); URINE CANNABINOID SCREEN NEGATIVE (Neg); URINE COCAINE SCREEN NEGATIVE (Neg); URINE METHADONE SCREEN NEGATIVE (Neg); URINE OPIATE SCREEN NEGATIVE (Neg); URINE PHENCYCLIDINE SCREEN NEGATIVE (Neg)
[2022-08-02] MEDS ORDERED: AMLO2.5T4 PO (03:38)
[2022-08-02] MEDS ORDERED: FLUO60TA PO (06:02)
[2022-08-02] MEDS ORDERED: GABA-530 PO (06:04)
--- NOTE | 2022-08-02 07:38 | NUR ---
THIS TECH FAXED PATIENT PACKET TO [facility]
[2022-08-02] MEDS ORDERED: FLUoxetine 20mg capsule PO SCH (08:00)
[2022-08-02] MEDS ORDERED: baclofen 10mg tablet PO SCH (08:00)
[2022-08-02] MEDS ORDERED: HYDROchlorothiazide 25mg tablet PO SCH (08:00)
[2022-08-02] MEDS ORDERED: ARIPIPRAZOLE 15 MG TABLET PO SCH (08:00)
[2022-08-02] MEDS ORDERED: multivitamins, therapeutics tablet PO SCH (08:00)
[2022-08-02] MEDS ORDERED: gabapentin 100mg capsule PO SCH (08:00)
[2022-08-02] MEDS ORDERED: amLODIPine 2.5mg tablet PO SCH (08:00)
[2022-08-02] MEDS ORDERED: lisinopril 20mg tablet PO SCH (08:00)
--- NOTE | 2022-08-02 08:58 | NUR ---
Received pt from the main ER, pt is calm, pleasant and appropriate. She is currently sitting on her bed.
[2022-08-02] MEDS: vitamin B comp w/Vit. C tab 1 TAB TABLET PO SCH ×2 (09:40→10:02)
[2022-08-02] MEDS ORDERED: ibuprofen tablet 400 MG TABLET PO ONE (09:45)
--- NOTE | 2022-08-02 10:06 | NUR ---
AM medicaitons adminsitered, PRN motrin for c/o back pain 11/27. Pt is sitting on her bed awaiting for her son to arrive for her discharge. Assessments completed.
[2022-08-02 10:23] VITALS: BP 146/112
[2022-08-02] MEDS ORDERED: lamoTRIgine 100mg tablet PO SCH (21:00)
[2022-08-02] MEDS ORDERED: atorvastatin 20mg tablet PO SCH (21:00)
== END 2022-08-02 10:20 | disposition home or self-care (01) ==
LOC: ER 19:33
DX: R45.851 Suicidal ideations (principal); Z20.822 Contact with and (suspected) exposure to COVID-19; I11.9 Hypertensive heart disease without heart failure; J44.9 Chronic obstructive pulmonary disease, unspecified; G89.29 Other chronic pain; M54.9 Dorsalgia, unspecified; F31.9 Bipolar disorder, unspecified; Z88.5 Allergy status to narcotic agent; Z88.8 Allergy status to other drugs, medicaments and biological substances; Z79.899 Other long term (current) drug therapy; Z79.1 Long term (current) use of non-steroidal anti-inflammatories (NSAID); Z79.2 Long term (current) use of antibiotics; Z88.6 Allergy status to analgesic agent
CPT/HCPCS: 36415; 80053; 80305; 80320; 81001; 82948; 84443; 85025; 87811; 99285

== ENCOUNTER 2022-08-15 15:23 | Emergency (ER) | payer BC, MEDICAID ==
[~2022-08-15] VITALS: Ht 160 cm; Wt 115.5 kg
[~2022-08-15 15:23] MED LIST changes: -AMLO10TA13 PO; +AMLO2.5T4 PO; -FLUO40CA PO; +FLUO60TA PO; -PANT-47 PO; -TRAZ-251 PO
[2022-08-15 15:49] LABS: BASOPHILS % (AUTO) 0.7 % (0-1); EOSINOPHILS # (AUTO) 0.2 X10'3 (0-0.9); EOSINOPHILS % (AUTO) 2.6 % (0-6); HEMATOCRIT 35.9 % (35.0-45.0); HEMOGLOBIN 11.7 g/dl (12.0-16.0); LYMPHOCYTES % (AUTO) 41.7 % (21-51); MEAN CORPUSCULAR HEMOGLOBIN 28.2 PG (27.0-31.0); MEAN CORPUSCULAR HGB CONC 32.5 g/dL (33.0-36.5); MEAN CORPUSCULAR VOLUME 86.6 FL (78-98); MEAN PLATELET VOLUME 6.6 FL (7.4-10.4); MONOCYTES # (AUTO) 0.7 X10'3 (0-0.9); MONOCYTES % (AUTO) 10.4 % (2-12); NEUTROPHILS # (AUTO) 3.2 X10'3 (1.8-7.7); NEUTROPHILS % (AUTO) 44.6 % (42-75); PLATELET COUNT 256 X10'3 (140-440); RED BLOOD COUNT 4.15 X10'6 (4.20-5.60); RED CELL DISTRIBUTION WIDTH 15.8 % (11.5-14.5); WHITE BLOOD COUNT 7.1 X10'3 (4.5-11.0)
[2022-08-15 16:07] LABS: ALANINE AMINOTRANSFERASE 21 U/L (12-78); ALBUMIN 3.9 G/DL (3.4-5.0); ALBUMIN/GLOBULIN RATIO 0.9 (1.1-1.5); ALKALINE PHOSPHATASE 171 IU/L (46-116); ANION GAP 7 (8-16); ASPARTATE AMINO TRANSFERASE 20 U/L (10-37); BILIRUBIN,TOTAL 0.2 MG/DL (0.1-1.0); BLOOD UREA NITROGEN 30 MG/DL (7-18); BUN/CREATININE RATIO 28.3 (10.0-20.0); CALCIUM 9.4 MG/DL (8.5-10.1); CHLORIDE 104 MMOL/L (99-107); CREATININE 1.06 MG/DL (0.40-0.90); GLUCOSE 149 MG/DL (70-104); POTASSIUM 3.9 MMOL/L (3.5-5.1); SODIUM 139 MMOL/L (135-145); TOTAL CARBON DIOXIDE 28.2 MMOL/L (24-32); TOTAL PROTEIN 8.3 G/DL (6.4-8.2); eGFR 51 ML/MIN
[2022-08-15 16:13] LABS: MAGNESIUM 2.4 MG/DL (1.5-2.4)
[2022-08-15] MEDS ORDERED: MAGN250T11 PO (19:31)
[2022-08-15] MEDS ORDERED: OSC500T PO (19:31)
[2022-08-15] MEDS ORDERED: BACL-11 PO (19:31)
[2022-08-15] MEDS ORDERED: HYDROXYZINE HCL PO (19:31)
[2022-08-15] MEDS ORDERED: ibuprofen PO (19:31)
[2022-08-15] MEDS ORDERED: ASCO-139 PO (19:31)
[2022-08-15] MEDS ORDERED: GABA300C PO (19:31)
[2022-08-15] MEDS ORDERED: CHOL100025 PO (19:31)
[2022-08-15] MEDS ORDERED: zinc PO (19:31)
[2022-08-15] MEDS ORDERED: FLUO20CA39 PO (19:31)
[2022-08-15] MEDS ORDERED: LUTUDA PO (19:31)
[2022-08-15] MEDS ORDERED: ACET-812 PO (19:31)
[2022-08-15] MEDS ORDERED: CefTRIAXone 2gm/D5W 50ml BAG 50 ML IV ONE (21:15)
[2022-08-15] MEDS ORDERED: aspirin 81mg tab.chew PO ONE (21:30)
[2022-08-15 21:44] VITALS: BP 123/79
== END 2022-08-15 21:46 | disposition home or self-care (01) ==
LOC: ER 15:23
DX: R07.89 Other chest pain (principal); I10 Essential (primary) hypertension; E78.00 Pure hypercholesterolemia, unspecified; K21.9 Gastro-esophageal reflux disease without esophagitis; E11.9 Type 2 diabetes mellitus without complications; E03.9 Hypothyroidism, unspecified; F31.9 Bipolar disorder, unspecified; Z88.8 Allergy status to other drugs, medicaments and biological substances; Z91.040 Latex allergy status
CPT/HCPCS: 36415; 80053; 83735; 83880; 84484; 85025; 93005; 99284

== ENCOUNTER 2023-01-06 16:06 | Emergency (ER) | payer MEDICARE, MEDICAID ==
[~2023-01-06] VITALS: Ht 160 cm; Wt 120.0 kg
[~2023-01-06 16:06] MED LIST changes: +ACET-812 PO; +ASCO-139 PO; +BACL-11 PO; -BACL10TA2 PO; +CHOL100025 PO; -CHOL100046 PO; +FLUO20CA39 PO; -FLUO60TA PO; -GABA-530 PO; +GABA300C PO; +HYDROXYZINE HCL PO; +LUTUDA PO; +MAGN250T11 PO; +OSC500T PO; +ibuprofen PO; +zinc PO
[2023-01-06 16:18] VITALS: TEMP 98.2
--- NOTE | 2023-01-06 16:28 | NUR ---
EKG done 1615
[2023-01-06 16:29] LABS: BASOPHILS # (AUTO) 0.1 X10'3 (0-0.2); BASOPHILS % (AUTO) 0.6 % (0-1); EOSINOPHILS # (AUTO) 0.3 X10'3 (0-0.9); EOSINOPHILS % (AUTO) 3.1 % (0-6); HEMATOCRIT 33.3 % (35.0-45.0); LYMPHOCYTES # (AUTO) 2.7 X10'3 (1.1-4.8); LYMPHOCYTES % (AUTO) 28.8 % (21-51); MEAN CORPUSCULAR HEMOGLOBIN 28.7 PG (27.0-31.0); MEAN CORPUSCULAR HGB CONC 32.9 g/dL (33.0-36.5); MEAN PLATELET VOLUME 6.3 FL (7.4-10.4); MONOCYTES # (AUTO) 0.8 X10'3 (0-0.9); MONOCYTES % (AUTO) 8.5 % (2-12); NEUTROPHILS # (AUTO) 5.4 X10'3 (1.8-7.7); PLATELET COUNT 304 X10'3 (140-440); RED BLOOD COUNT 3.83 X10'6 (4.20-5.60); WHITE BLOOD COUNT 9.2 X10'3 (4.5-11.0)
[2023-01-06 16:43] LABS: ALANINE AMINOTRANSFERASE 27 U/L (12-78); ALBUMIN 3.6 G/DL (3.4-5.0); ALKALINE PHOSPHATASE 158 IU/L (46-116); ANION GAP 10 (8-16); ASPARTATE AMINO TRANSFERASE 21 U/L (10-37); BILIRUBIN,TOTAL 0.3 MG/DL (0.1-1.0); BLOOD UREA NITROGEN 32 MG/DL (7-18); BUN/CREATININE RATIO 27.1 (10.0-20.0); CALCIUM 9.2 MG/DL (8.5-10.1); CHLORIDE 98 MMOL/L (99-107); CREATININE 1.18 MG/DL (0.40-0.90); GLUCOSE 158 MG/DL (70-104); POTASSIUM 4.1 MMOL/L (3.5-5.1); SODIUM 133 MMOL/L (135-145); TOTAL CARBON DIOXIDE 24.8 MMOL/L (24-32); TOTAL PROTEIN 7.3 G/DL (6.4-8.2); eCRCL 37 ML/MIN; eGFR 45 ML/MIN
[2023-01-06 17:03] LABS: ETHANOL < 10 MG/DL (<10); PRO BRAIN NATRIURETIC PEPTIDE 162 PG/ML (0-125); THYROID STIMULATING HORMONE 0.49 ulU/ml (0.34-4.50)
[2023-01-06] MEDS ORDERED: hydrOXYzine 25 MG tablet PO ONE (17:45)
--- NOTE | 2023-01-06 17:55 | NUR ---
UNABLE TO SCAN MEDICATION, NO SCANNER.
[2023-01-06 18:51] LABS: BILIRUBIN,URINE NEGATIVE (Neg); CLARITY,URINE CLEAR (Clear); COLOR,URINE YELLOW (Yellow); GLUCOSE, URINE NEGATIVE (Neg); KETONES,URINE NEGATIVE (Neg); LEUKOCYTE ESTERASE ,URINE SMALL (Neg); NITRITES, URINE NEGATIVE (Neg); OCCULT BLOOD,URINE NEGATIVE (Neg); PROTEIN,URINE NEGATIVE (Neg); UA COLLECTION TYPE CLN CATCH MIDSTREAM; UROBILINOGEN,URINE 0.2 E.U/dL (0.2-1.0)
[2023-01-06 19:00] LABS: BACTERIA,URINE FEW /HPF (Neg); RBC,URINE NONE SEEN /HPF (0-2)
[2023-01-06 19:01] LABS: MUCUS STRANDS NONE SEEN /LPF (Neg); SQUAMOUS EPITHELIAL CELL,UR FEW /LPF (FEW); WBC CLUMPS,URINE MODERATE /HPF (NEGATIVE)
[2023-01-06 19:06] LABS: URINE AMPHETAMINE SCREEN NEGATIVE (Neg); URINE BARBITUATE SCREEN NEGATIVE (Neg); URINE BENZODIAZEPINES SCREEN NEGATIVE (Neg); URINE CANNABINOID SCREEN NEGATIVE (Neg); URINE COCAINE SCREEN NEGATIVE (Neg); URINE METHADONE SCREEN NEGATIVE (Neg); URINE OPIATE SCREEN NEGATIVE (Neg); URINE PHENCYCLIDINE SCREEN NEGATIVE (Neg)
[2023-01-06] MEDS ORDERED: FOSFOMYCIN TROMETHAMINE 3 GM PACKET PO ONE (19:40)
[2023-01-06 20:33] VITALS: BP 146/72; PULSE 67; RESP 17; O2SAT 97
== END 2023-01-06 20:35 | disposition home or self-care (01) ==
LOC: ER 16:07
DX: F43.9 Reaction to severe stress, unspecified (principal); Z20.822 Contact with and (suspected) exposure to COVID-19; R07.89 Other chest pain; N39.0 Urinary tract infection, site not specified; E78.00 Pure hypercholesterolemia, unspecified; I10 Essential (primary) hypertension; K21.9 Gastro-esophageal reflux disease without esophagitis; E11.9 Type 2 diabetes mellitus without complications; E03.9 Hypothyroidism, unspecified; F31.9 Bipolar disorder, unspecified; Z88.8 Allergy status to other drugs, medicaments and biological substances; Z91.040 Latex allergy status; Z91.09 Other allergy status, other than to drugs and biological substances; Z79.1 Long term (current) use of non-steroidal anti-inflammatories (NSAID); Z79.899 Other long term (current) drug therapy
CPT/HCPCS: 36415; 80053; 80305; 80320; 81001; 83880; 84443; 84484; 85025; 87811; 93005; 99284; Q0177

== ENCOUNTER 2023-03-23 18:24 | Inpatient (IN) | payer MEDICARE, MEDICAID ==
[~2023-03-23] VITALS: Ht 160 cm; Wt 125.9 kg
[~2023-03-23 18:24] MED LIST changes: -ACET-812 PO; -AMLO2.5T4 PO; -ARIP30TA22 PO; +ARIP5TAB14 PO; +ATOR40TA7 PO; -ATOR40TA72 PO; -CHOL100025 PO; +HYDR50TA4 PO; -HYDROXYZINE HCL PO; -LISI1TAB53 PO; +LISI40TA13 PO; +LURA80TA2 PO; -LUTUDA PO; -MAGN250T11 PO; -OSC500T PO; +PRED5DRO23 LEFTEYE; +amlodipine besylate PO; +areds 2 PO; +calcium PO; +hydroxyzine PO; -ibuprofen PO; +omeprazole PO
[2023-03-23 20:56] LABS: ALANINE AMINOTRANSFERASE 26 U/L (12-78); ALBUMIN 3.9 G/DL (3.4-5.0); ALBUMIN/GLOBULIN RATIO 0.9 (1.1-1.5); ALKALINE PHOSPHATASE 183 IU/L (46-116); ANION GAP 9 (8-16); ASPARTATE AMINO TRANSFERASE 25 U/L (10-37); BILIRUBIN,TOTAL 0.4 MG/DL (0.1-1.0); BLOOD UREA NITROGEN 24 MG/DL (7-18); CALCIUM 9.5 MG/DL (8.5-10.1); CHLORIDE 99 MMOL/L (99-107); CREATININE 1.09 MG/DL (0.40-0.90); GLUCOSE 129 MG/DL (70-104); SODIUM 135 MMOL/L (135-145); TOTAL CARBON DIOXIDE 26.7 MMOL/L (24-32); TOTAL PROTEIN 8.2 G/DL (6.4-8.2); eCRCL 40 ML/MIN; eGFR 50 ML/MIN
[2023-03-23 21:02] LABS: BASOPHILS # (AUTO) 0.1 X10'3 (0-0.2); BASOPHILS % (AUTO) 0.6 % (0-1); EOSINOPHILS # (AUTO) 0.2 X10'3 (0-0.9); HEMATOCRIT 37.2 % (35.0-45.0); HEMOGLOBIN 12.1 g/dl (12.0-16.0); LYMPHOCYTES # (AUTO) 2.9 X10'3 (1.1-4.8); MEAN CORPUSCULAR HEMOGLOBIN 28.6 PG (27.0-31.0); MEAN CORPUSCULAR HGB CONC 32.6 g/dL (33.0-36.5); MEAN CORPUSCULAR VOLUME 87.8 FL (78-98); MEAN PLATELET VOLUME 7.2 FL (7.4-10.4); MONOCYTES # (AUTO) 0.8 X10'3 (0-0.9); MONOCYTES % (AUTO) 9.3 % (2-12); NEUTROPHILS % (AUTO) 56.1 % (42-75); PLATELET COUNT 339 X10'3 (140-440); RED BLOOD COUNT 4.24 X10'6 (4.20-5.60); RED CELL DISTRIBUTION WIDTH 15.2 % (11.5-14.5)
[2023-03-23 21:03] LABS: PRO BRAIN NATRIURETIC PEPTIDE 309 PG/ML (0-125)
[2023-03-23 21:04] LABS: MAGNESIUM 2.5 MG/DL (1.5-2.4); PRO BRAIN NATRIURETIC PEPTIDE 312 PG/ML (0-125)
[2023-03-23 21:12] LABS: POTASSIUM 4.6 MMOL/L (3.5-5.1)
[2023-03-24] VITALS (9 sets, daily range): BP systolic 137–156; BP diastolic 55–68; PULSE 79–92; RESP 18–20; TEMP 98.1; O2SAT 98–99
--- NOTE | 2023-03-24 00:03 | NUR ---
md bee notified of pts bp
[2023-03-24] MEDS ORDERED: normal saline 1000ML IV soln IVB ONE (00:15)
[2023-03-24] MEDS ORDERED: iohexol 350MG/ML 100ml bottle IV ONE (00:24)
[2023-03-24] MEDS ORDERED: metoprolol tartrate 1mg/ml inj IV ONE ×2 (02:35→03:10)
--- NOTE | 2023-03-24 04:08 | NUR ---
Patient placed on hospital bed.
[2023-03-24] MEDS ORDERED: acetaminophen 325mg tablet PO PRN (04:20)
[2023-03-24] MEDS ORDERED: magnesium Cl slow-release 64mg tablet PO PRN (04:20)
[2023-03-24] MEDS ORDERED: mag hydrox/Alum hydrox/simeth 30ml oral suspension PO PRN (04:20)
[2023-03-24] MEDS ORDERED: potassium Cl 20 mEq SR tablet PO PRN ×2 (04:20)
[2023-03-24] MEDS ORDERED: ondansetron/PF 4mg/2ml inj IV PRN (04:20)
[2023-03-24] MEDS ORDERED: regadenoson 0.4mg/5ml syringe IV PRN (04:20)
[2023-03-24] MEDS ORDERED: metoprolol tartrate 1mg/ml inj IV PRN (04:20)
[2023-03-24] MEDS ORDERED: aminophylline 250mg/10ml inj. IV PRN (04:20)
[2023-03-24] MEDS ORDERED: magnesium hydroxide 30ml (MOM) UD suspension PO PRN (04:20)
[2023-03-24] MEDS ORDERED: magnesium 2GM in 50ml NS 50 ML IV PRN (04:20)
[2023-03-24] MEDS ORDERED: potassium Cl 40MEQ/1/2NS 520ml 520 ML IV PRN (04:20)
[2023-03-24] MEDS ORDERED: nitroGLYCERIN 0.4mg SUBLingual tab SL PRN (04:20)
[2023-03-24] MEDS ORDERED: PERFLUTREN PROTEIN-A MICROSPHR (Optison) 0.22 MG/ML 3ML VIAL IV ONE (04:20)
[2023-03-24] MEDS ORDERED: magnesium 4gm in 100ml NS 100 ML IV PRN (04:20)
--- NOTE | 2023-03-24 04:54 | NUR ---
I have reviewed and agree with all interventions, assessments performed and documented by RONALD Kumar
[2023-03-24 07:52] LABS: MAGNESIUM 2.3 MG/DL (1.5-2.4); POTASSIUM 4.4 MMOL/L (3.5-5.1)
[2023-03-24] MEDS ORDERED: docusate sod 100mg capsule PO SCH (08:00)
[2023-03-24] MEDS ORDERED: heparin, porcine 5000 units/ml vial SQ SCH (08:00)
[2023-03-24] MEDS ORDERED: K and/or MAG REPLACEMENT MC SCH (08:00)
--- NOTE | 2023-03-24 09:00 | NUR ---
pt to nuc med for stress test, on monitor with RN, pt is able to transfer self from bed to wheelchair with min assist, no SOB, no chest pain/discomfort,
--- NOTE | 2023-03-24 10:10 | NUR ---
pt to use restroom, had loose brown bowel movement, helped clean pt.
--- NOTE | 2023-03-24 10:28 | NUR ---
PT IS HAVING ECHOCARDIOGRAM AND STRESS TEST, WAITING FOR PT TO RETURN TO GIVE AM MEDICATIONS
--- NOTE | 2023-03-24 10:30 | NUR ---
pt back to ER room 12, report to Aurelio CARDENAS
--- NOTE | 2023-03-24 12:40 | NUR ---
PT HAD EPISODE OF [facility], WAS PLACED IN [facility]. LINENS CHANGED AND PATIENT REPLACED IN A POSITION OF COMFORT.
== END 2023-03-24 14:17 | disposition home or self-care (01) | DRG 313 ==
LOC: ER 18:25 → ED HOLD 03-24 04:19
PROVIDERS: ADMIT Internal Medicine; ATTEND Internal Medicine
PROC: B32T1ZZ Computerized Tomography (CT Scan) of Left Pulmonary Artery using Low Osmolar Contrast (ICD-10-PCS; principal; 2023-03-24)
PROC: B3201ZZ Computerized Tomography (CT Scan) of Thoracic Aorta using Low Osmolar Contrast (ICD-10-PCS; 2023-03-24)
PROC: B32S1ZZ Computerized Tomography (CT Scan) of Right Pulmonary Artery using Low Osmolar Contrast (ICD-10-PCS; 2023-03-24)
PROC: 4A02XM4 Measurement of Cardiac Total Activity, External Approach (ICD-10-PCS; 2023-03-24)
PROC: 3E073KZ Introduction of Other Diagnostic Substance into Coronary Artery, Percutaneous Approach (ICD-10-PCS; 2023-03-24)
DX: R07.89 Other chest pain (principal); G47.33 Obstructive sleep apnea (adult) (pediatric); I27.20 Pulmonary hypertension, unspecified; E78.00 Pure hypercholesterolemia, unspecified; K21.9 Gastro-esophageal reflux disease without esophagitis; E03.9 Hypothyroidism, unspecified; G89.29 Other chronic pain; M54.9 Dorsalgia, unspecified; F41.9 Anxiety disorder, unspecified; F31.9 Bipolar disorder, unspecified; I10 Essential (primary) hypertension; E11.9 Type 2 diabetes mellitus without complications; I25.2 Old myocardial infarction; Z88.8 Allergy status to other drugs, medicaments and biological substances; Z91.040 Latex allergy status; Z79.899 Other long term (current) drug therapy; Z86.73 Personal history of transient ischemic attack (TIA), and cerebral infarction without residual deficits; Z98.1 Arthrodesis status; Z82.49 Family history of ischemic heart disease and other diseases of the circulatory system
CPT/HCPCS: 36415; 71045; 71275; 78452; 80053; 82948; 83036; 83735; 83880; 84132; 84484; 85025; 93005; 93017; 96374; 99285; A9500; G0378; J1644; J2785; J3490; J7030; Q9967

== ENCOUNTER 2024-05-26 10:20 | Outpatient (CLI) | payer MEDICARE, MEDICAID ==
[~2024-05-26 10:20] MED LIST changes: +ARIP5TAB12 PO; -ARIP5TAB14 PO; +ATOR-411 PO; -ATOR40TA7 PO
== END 2024-05-26 23:59 | disposition home or self-care (01) ==
LOC: RAD 10:20
PROVIDERS: ATTEND Podiatrist Foot & Ankle Surgery
DX: S93.401D Sprain of unspecified ligament of right ankle, subsequent encounter (principal); M19.071 Primary osteoarthritis, right ankle and foot; M25.471 Effusion, right ankle; M25.474 Effusion, right foot; M21.071 Valgus deformity, not elsewhere classified, right ankle; M21.41 Flat foot [pes planus] (acquired), right foot; M21.371 Foot drop, right foot; M62.571 Muscle wasting and atrophy, not elsewhere classified, right ankle and foot; M79.671 Pain in right foot; M21.6X1 Other acquired deformities of right foot; Z98.1 Arthrodesis status; X58.XXXD Exposure to other specified factors, subsequent encounter
CPT/HCPCS: 73700

== ENCOUNTER 2024-12-18 10:44 | Day surgery (SDC) | payer MEDICARE, MEDICAID ==
[2024-12-11 10:11] LABS: LEUKOCYTE ESTERASE ,URINE NEGATIVE (Neg); NITRITES, URINE NEGATIVE (Neg); OCCULT BLOOD,URINE NEGATIVE (Neg)
[2024-12-11 10:14] LABS: MEAN PLATELET VOLUME 6.7 FL (7.4-10.4); PRE OP HEMATOCRIT 34.5 % (35.0-45.0); PRE OP HEMOGLOBIN 11.5 g/dL (12.0-16.0); PRE OP PLATELET COUNT 331 X10'3 (140-440); PRE OP WHITE BLOOD COUNT 10.6 10'3 (4.8-10.8); RED CELL DISTRIBUTION WIDTH 14.3 % (11.5-14.5)
[2024-12-11 10:15] LABS: UA COLLECTION TYPE NON-SPECIFIED
[2024-12-11 11:34] LABS: CREATININE 1.16 MG/DL (0.40-0.90); PRE OP ALT 32 U/L (30-65); PRE OP ANION GAP 9 (8-16); PRE OP AST 24 U/L (10-37); PRE OP BILIRUB, TOTAL 0.4 MG/DL (0.0-1.0); PRE OP GLUCOSE 101 MG/DL (70-104); PRE OP POTASSIUM 3.7 MMOL/L (3.4-5.1); PRE OP SODIUM 132 MMOL/L (135-145); TOTAL CARBON DIOXIDE 27.8 MMOL/L (24-32); eGFR 46 ML/MIN
[2024-12-18] VITALS (14 sets, daily range): BP systolic 130–152; BP diastolic 53–123; PULSE 69–89; RESP 8–25; TEMP 98.2; O2SAT 94–100
[~2024-12-18] VITALS: Ht 160 cm; Wt 103.0 kg
[~2024-12-18 10:44] MED LIST changes: +AMLO2.5T2 PO; -ARIP5TAB12 PO; +BUPIVAcaine/PF 2.5mg/ml (0.25%) 10ml vial ONE; +CALC600T14 PO; -FLUO20CA39 PO; +FLUO20CA41 PO; +HYDR-3717 PO; +HYDR-3972 PO; -LISI40TA13 PO; +LISI40TA20 PO; +MAGN400T29 PO; +NAPR220T67 PO; +OMEP20CA16 PO; -PRED5DRO23 LEFTEYE; +VIT K; +VIT1CAPS46 PO; +ZINC220T3 PO; -amlodipine besylate PO; -areds 2 PO; +bacitracin 15gm ointment TP ONE; -calcium PO; -hydroxyzine PO; -omeprazole PO; -zinc PO
[2024-12-18] MEDS: ringers solution, lacted 1,000 ML IV SCH (11:31)
[2024-12-18] MEDS: ceFAZolin 2gm/dext,iso 50mL 50 ML IV ONE (11:31)
[2024-12-18] MEDS ORDERED: ROPIVAcaine 0.5% (5mg/ml) 30ml vial ONE (12:38)
[2024-12-18] MEDS ORDERED: propofol inj 20 ML IV ONE (13:17)
[2024-12-18] MEDS ORDERED: ondansetron/PF 4mg/2ml inj ONE (13:17)
[2024-12-18] MEDS ORDERED: acetaminophen 1,000mg/100ml IV 100 ML IV ONE (13:57)
[2024-12-18] MEDS ORDERED: dexamethasone sod phosphate 4mg/ml inj. ONE (13:58)
[2024-12-18] MEDS ORDERED: fentaNYL/PF 50MCG/1 ML 2ML syringe IV PRN ×2 (14:35)
[2024-12-18] MEDS ORDERED: morphine 4 MG/ML inj SYRINge IV PRN (14:35)
[2024-12-18] MEDS ORDERED: ondansetron/PF 4mg/2ml inj IV PRN (14:35)
[2024-12-18] MEDS ORDERED: ringers solution, lacted 1,000 ML IV SCH (14:35)
[2024-12-18] MEDS ORDERED: enalaprilat 1.25mg/ml 2ml vial IV PRN (14:35)
[2024-12-18] MEDS ORDERED: hydrALAZINE 20mg/ml inj. IV PRN (14:35)
--- NOTE | 2024-12-18 14:49 | ANESTHESIA RECORDS ---
Nerve Block Providers to CC CC: ROCIO DALEY DPM ~ Diagnosis: Nerve Block requested by: ROCIO DALEY DPM Neuraxial/Peripheral Nerve Block requested for Post-operative analgesia by Physician above DIAGNOSIS: Post-operative pain. (Body Area) Shoulder: [ ] Arm: [ ] Hand: [ ] Hip: [ ] Knee: [ ] Ankle: [___Right foot,lt 2nd toe ] Foot: [ ] Leg: [ ] Abdomen: [ ] Other: [ ] Post-operative pain expected to be/is inadequately managed by oral or IV medicines. Regional anesthetic expected to facilitate rehabilitation and/or discharge from facility. Other:[ _] Procedure Performed: Femoral / Saphenous: Right Popliteal Lateral: Right Time out Done?: Yes Time of Time out: 13:15 Procedure Details: PROCEDURE DETAILS: Risks, benefits and alternatives explained Informed consent obtained, and patient wishes to proceed Conscious sedation with indicated monitors Patient positioned, pertinent anatomy defined, sterile technique used Needle used: [ ] 3 1/8 inch Stimuplex Ultra 22ga [ ] 4 inch Stimuplex Ultra 20ga [ X] 6 inch Stimuplex Ultra 20ga [ ] 6 inch, Quikbloc over the needle catheter set 20ga [ ] 4 inch Quikbloc over the needle catheter set 20ga [ ]Other: [ ] Loss of twitch @ [___0.6 ]mA [X ] Single Injection [ ] Catheter Ultrasound Guidance Used: [X ] Yes [ ] No Attempts:[_multiple ] Medicines injected: [ ]Clonidine Amt:[ ] [ X ]Dexamethasone Amt:[ ] [ X ]Ropivacaine Amt:[___0.5% 30 c.c,0.35% 35 c.c ] [ ]Bupivacaine Amt:[ ] [ ]Lidocaine Amt:[ ] [ ]Exparel 1.33%:[ ] [ ]Epinephrine Amt[ ] [ ]Other: [ ] Intermittent aspiration during local anesthetic administration No symptoms of intraneural or intravenous injection Patient tolerated procedure well Comments Left 2nd toe digital block 1/2nd inter meta tarsal space 10 c.c 0.35% ropivacaine. Right Sciatic nerve block: Right posterior thigh is examined with ultrasound.p oor image,unable to identify any structures. Needle is aproached from a lateral position. nerve stimulation and motor response is used to guide needle positioning .multiple attempt to get motor response. 35 c.c of 0.5% ropivacaine mixture is used to infiltrate the sciatic nerve. Right Adductor canal block: Right mid medical thigh is examined with ultrasound.Adductor canal and femoral vessels are identified. needle is placed near the adductor canal and 25 c.c of.35% ropivacaine is injected. WING SEGURA MD Dec 18, 2024 14:49
[2024-12-18] MEDS: HYDROcodone/acetaminophen 5mg/325mg tablet PO ONE (18:21)
== END 2024-12-18 18:20 | disposition home or self-care (01) ==
LOC: PAS 10:44
PROVIDERS: ATTEND Podiatrist Foot & Ankle Surgery
DX: T84.84XA Pain due to internal orthopedic prosthetic devices, implants and grafts, initial encounter (principal); M19.071 Primary osteoarthritis, right ankle and foot; G89.18 Other acute postprocedural pain; I10 Essential (primary) hypertension; E66.9 Obesity, unspecified; E78.5 Hyperlipidemia, unspecified; F41.9 Anxiety disorder, unspecified; F32.A Depression, unspecified; G47.30 Sleep apnea, unspecified; Z86.73 Personal history of transient ischemic attack (TIA), and cerebral infarction without residual deficits; Z98.890 Other specified postprocedural states; Z68.41 Body mass index [BMI] 40.0-44.9, adult; Z91.040 Latex allergy status; Z88.8 Allergy status to other drugs, medicaments and biological substances
CPT/HCPCS: 20680; 20900; 28308; 28740; 36415; 64445; 64447; 73620; 80053; 81003; 82948; 85025; A4618; A6223; A6253; A6402; A6449; A7000; C1713; J0131; J1100; J2405; J2704; J2795; J3490; J7030; J7120; Z7506; Z7508; Z7512; Z7610; 76000